=== PATIENT | female | born 1995 ===

== ENCOUNTER 2019-07-12 12:53 | Inpatient (IN) | payer OTHER, SELFPAY ==
[2019-06-30 08:11] VITALS: BMI 24.0
[2019-07-12] VITALS (12 sets, daily range): BP systolic 110–123; BP diastolic 56–84; PULSE 63–85; RESP 10–18; TEMP 36.2–36.9; O2SAT 95–100; BMI 23.8
--- NOTE | 2019-07-12 | PATH_ITS ---
[facility] Accession Number: [id number] . 01 Material submitted: . kidney - LEFT KIDNEY . 01 Clinical history: . LEFT LAPAROSCOPIC HAND ASSISTED NEPHRECTOMY . 02 Diagnosis: Left Kidney, Nephrectomy: Dilated collecting ducts consistent with history of chronic obstruction. Regions of atrophy and chronic inflammation consistent with chronic pyelonephritis. Please see comment. MRV 07/15/2019 1418 Local . 02 Comment: This case will be forwarded to the [facility] Renal Pathology department in consultation and the results reported as an amendment. . 02 Electronically signed: . Wen Hall MD, Pathologist NPI- [id number] . 01 Gross description: . Received in formalin, labeled left kidney, is an intact kidney (67 grams, 9.2 x 4.3 x 2.2 cm) with attached perinephric adipose tissue (up to 2.5 cm in depth). The ureter (length-3.0 cm, diameter-0.7 cm), renal vein (length-1.9 cm, diameter-0.8 cm), and renal artery (length-0.7 cm, diameter-0.3 cm) are identified and received clamped and stapled. No hilar lymph nodes are identified. The adrenal gland is absent. The parenchyma is light ayon to dark brown, smooth and homogenous. The nephrotic architecture appears to be normal. No nodules, masses or lesions are identified. Section code: (A1) ureteric and vascular resection margins; (A2-A5) associate sales representative tissue. ([id number]) /[facility] 07/14/2019 1533 Local . 02 Pathologist provided ICD-10: N11.1 . 02 CPT . 831974 Performed at: [address], [place], [place] [id number] MD Javier Roldan MD Phone: [phone] Performed at: [address] [id number] MD Wen Hall MD Phone: [phone]
[2019-07-12] MEDS: LACTATED RINGERS 1,000 ML 42 ML IV ×2 (13:51→18:09)
--- NOTE | 2019-07-12 15:59 | PM.PREOP ---
Pre-operative Note Interval Note History & Physical reviewed/Exam performed by Physician: Yes Changes to H&P: No H&P completed within 30 days and has changed as indicated here:: There are no changes to the history and physical examination scanned into file.
[2019-07-12] MEDS: CEFAZOLIN 2 GM/100 ML FROZ.PIGGY IV (17:00)
[2019-07-12] MEDS: ACETAMINOPHEN IV 1,000 MG/100 ML VIAL 400 MG IV (17:40)
--- NOTE | 2019-07-12 18:01 | SUR.OPER ---
Lateral on padded OR bed, head on pillow, gel axillary roll in place, bottom leg bent with gel pad under knee to foot, upper leg straight and supported with pillows. Upper arm supported by pillows and secured over bottom arm to padded arm board. Safety belt at hip, tape over blanket lower legs.
[2019-07-12] MEDS: BUPIVACAINE 0.25% W/ EPI 30 ML VIAL INJ (18:08)
[2019-07-12] MEDS: BUPIVACAINE LIPOSOME 266 MG/20 ML VIAL INJ (18:09)
--- NOTE | 2019-07-12 19:56 | PM.OP.1 ---
Operative Date/Time/Diagnoses Date of procedure: 07/12/19 Time of procedure: 19:56 Post-op diagnosis: same Procedure & Clinicians Procedure: 1. Left hand assisted laparoscopic nephrectomy. Same procedure as scheduled: Yes Indications: 1. Congenital atrophic left kidney. 2. Congenital left ureteropelvic junction obstruction. 3. Recurring UTI/left pyelonephritis. 4. Left nephrolithiasis. Surgeon: Malik Modi Wall To Wall Carpet Installer: Sindy Polo Click Yes if Unassisted: No Anesthesia Type: General Operative Notes Findings: There was a single left renal vein and artery supplying the left kidney. Left kidney was markedly atrophic with a very large collecting system. The adrenal gland was left in situ. Closure Type: primary Specimen(s): other (Atrophic left kidney.) Applied: catheter Estimated Blood Loss (mL): 10 Blood products transfused: none Tourniquet time (min): 0 Procedure in detail: The patient was positioned in supine was administered general anesthesia. She was then repositioned in modified left flank position. The abdomen and torso were then prepped and draped in sterile fashion. A solution of 0.5% Marcaine with epinephrine was then used to infiltrate the midline superior to the midline abdominal wall a midline incision was then made in the subcutaneous fat and Fausto's fascia was divided with the cautery pen and blunt dissection the the midline rectus fascia was then divided sharply the abdominal cavity was then entered and a hand port was placed appropriately. A 5 mm site was selected just below the left costal margin in the along the mammary line and a 10 mm port site was selected approximately midway between the umbilicus and the iliac crest again along the memory line. The sites were then infiltrated in periphery incisions were made ports were placed under direct visualization after creation of a pneumoperitoneum. Next using the LigaSure hand-held device the white line of Toldt was divided along the left colic gutter from the superior sigmoid approximately to the splenic flexure. The colon was then reflected medially and the aorta was palpated. A careful search for the hilum was then conducted using careful blunt and cautery dissection using the LigaSure Impact device. The vessels of of the left kidney were then identified a window was created bluntly in the 45 cm vascular stapler was then utilized to divide the hilum. Additional small vessels and other connections were then encountered dissecting medially and superiorly above the kidney. The adrenal gland on the left was identified and left in situ next the ureter was located and identified at approximately at the mid point a window was then created in the soft tissues and large hemoclips were applied proximally and distally before sharp division. Remaining loose areolar attachments of the kidney were then freed up with blunt dissection in the kidney was removed in its entirety. It was handed off the field and labeled as to its item procurement for routine gross and microscopic examination. Examination of the renal bed and hilum were then undertaken careful inspection of posterior to the spleen was performed as well. Hemostasis was excellent. The left colon was then repositioned anatomically and the short omentum was then draped anteriorly over the small bowel. The 12 mm port was closed with an interrupted 0 Vicryl full-thickness and then the skin was reapproximated with a running subcuticular 4 0 Monocryl a 5 mm port was closed at the skin level with a running subcuticular of 540 Monocryl. The midline abdominal wall fascia was then closed using running 0 PDS starting at at the inferior and superior apex and using running technique they were tied to 1 another at the midpoint. The subcutaneous layer was closed with the running 3 0 Vicryl skin was reapproximated with a running subcuticular of 4 micro. In's incision sites were then dressed with appropriately tailored Telfa pad and then op site dressings were applied over to create a bio occlusive closure. The patient was then repositioned in supine, was then awakened and transferred to [facility] in stable condition. Complications: none Post-operative Condition: stable Disposition: PACU Plan for aftercare: Acute Care.
[2019-07-12] MEDS: ONDANSETRON 4 MG/2 ML INJ IV (20:12)
[2019-07-12] MEDS: HYDROMORPHONE 2 MG INJ IV ×3 (20:12→20:41)
[2019-07-12] MEDS: OXYCODONE IR 5 MG TABLET PO ×2 (20:47→21:31)
[2019-07-12] MEDS: LACTATED RINGERS 1,000 ML 100 ML IV (21:32)
[2019-07-12] MEDS: HYDROMORPHONE 0.5 MG INJ IV (22:30)
--- NOTE | 2019-07-12 23:48 | PM.AN.REGBLK ---
Regional Block Pre-procedure Procedure: Continuous Epidural for Post-operative Pain Management PMH/ROS narrative: 23 y/o with non-functional kidney, post hand-assisted LEFT laparoscopic nephrectomy with c/o post-op pain, inadequate pain control with narcotics, request epidural for POPM. POD#0. Hx: No personal or family history of anesthesia problems. ASA Class: I Medications: Current Medications Generic Name Dose Route Start Last Admin Trade Name Freq PRN Reason Stop Dose Admin Gabapentin 300 mg 07/12/19 22:30 Neurontin PO BID DALLIN Hydromorphone HCl 0.5 mg 07/12/19 22:19 Dilaudid IV Q1H PRN Pain, Severe (7-10) Hydroxyzine HCl 25 mg 07/12/19 20:07 Vistaril IM Q4HR PRN spasm or agitation Lactated Ringer's 1,000 mls @ 100 mls/hr 07/12/19 20:15 07/12/19 21:32 Lactated Ringers IV 100 mls/hr CONT DALLIN Administration Bupivacaine HCl 25 ml/ Sodium 100 mls @ 6 mls/hr 07/12/19 23:00 Chloride EPIDURAL CONT DALLIN Oxycodone HCl 5 mg 07/12/19 20:07 07/12/19 21:31 Percolone PO 5 mg Q4HR PRN Administration Pain, Moderate (4-6) Allergies: Allergies Allergy/AdvReac Type Severity Reaction Status Date / Time nickel Allergy Mild Red bumps Verified 07/12/19 13:34 over time related to jewelery --: R/B discussed. Hand-assist Incision noted between xyphoid process and umbilicus (approx T7-T9 dermatome). Also port incision L lower abdomen, approx T11. Procedure Insertion date: 07/12/19 Insertion time: 23:15 Prep/Local: betadine x3 Interspace: T7-8 Patient position: sitting Needle: 18 gauge Romel Loss of resistance with: saline DA at (cm): 5 Catheter placed at SKIN (cm): 10 Catheter in SPACE (cm): 5 Sensory level: T5-9, covering large incision, but not lower abdomen port incision. Initial Medications TEST DOSE time: 23:20 TEST DOSE: 1.5% lidocaine with epinephrine 1:200k (mL): 3 BOLUS DOSE time: 23:25 BOLUS DOSE (mL): 4 BOLUS DOSE med: 0.25% bupivacaine Infusion INFUSION: 0.125% bupivacaine and with fentanyl 2 mcg/mL Initial rate (mL/hr): 6 Subsequent interventions: 6mL/h with PCEA 3mL q15m Post-procedure Anesthesia time START: 23:10 Anesthesia time END: 23:25 Post-procedure Anesthesia Assessment: Yes CV function: HR/BP stable, Yes Resp function: RR/sat/airway adequate, Yes Pain control adequate, Yes Nausea & vomiting absent and Yes Mental status appropriate
[2019-07-13] VITALS (10 sets, daily range): BP systolic 99–125; BP diastolic 51–62; PULSE 60–69; RESP 14–18; TEMP 36.8–37.4; O2SAT 95–99
--- NOTE | 2019-07-13 00:04 | PC.NURSE ---
Event Note Patient continued complaint of uncontrollable pain after second dose of oxycodone 5mg. MD called and orders received for 0.5mg PIV Dilaudid Q1H for severe pain and scheduled Gabapentin. Provider also expressed that if pain remained uncontrollable that option for epidural was still available. Patient updated and PIV Dilaudid given, patient reassessed a few minutes later and patient with continued complaint of 10/10. Stating she felt no relief from 0.5mg PIV Dilaudid and just felt high. MD called a second time and verbal orders received to call resolution expert anesthesiologist to initiate placement of epidural. Patient transferred to ICU to facilitate this.
[2019-07-13] MEDS: BUPIVACAINE 0.5% (PF) 25 ML in SODIUM CHLORIDE 0.9% 75 ML 6 ML EPIDURAL (01:48)
--- NOTE | 2019-07-13 01:54 | PC.NURSE ---
Addendum entered by Qi Davis R.N. 07/13/19 06:30: Patient still c/o pain to lower abdomen requiring PO oxycodone and IV Dilaudid for breakthrough. Also encourage her to use MILK RECEIVER. Original Note: Shift [id number] transferred to room 231 for epidural placement from anesthesia. Dr Garcia placed epidural of bupivicaine/Fentanyl with almost immediate effectiveness, rate 6ml/hr with MILK RECEIVER dose of 3ml/15min/20mg MAX. Patient tolerated procedure well, VSS, RA SpO2 >94%.
[2019-07-13] MEDS: OXYCODONE IR 5 MG TABLET PO ×2 (02:12→12:23)
[2019-07-13] MEDS: HYDROMORPHONE 0.5 MG INJ IV ×5 (04:00→22:20)
[2019-07-13] MEDS: LACTATED RINGERS 1,000 ML 100 ML IV ×2 (06:28→15:50)
--- NOTE | 2019-07-13 07:33 | PM.PN.1 ---
Subjective Subjective Date Patient Seen: 07/13/19 Time Patient Seen: 07:33 Interval history: During the interval she had difficulty pain control immediately postoperative. She consented to postoperative placement of epidural catheter. Since then the dose has been titrated and she has had excellent pain control. She denies nausea or vomiting or passage of flatus. Exam Vital Signs (past 8 hours): - 07/12/19 23:57 07/13/19 00:00 07/13/19 01:08 Temperature 97.8 F Pulse Rate 63 64 Respiratory Rate 16 Blood Pressure 114/56 L 115/58 L Pulse Oximetry 95 95 07/13/19 02:00 07/13/19 03:00 07/13/19 04:00 Temperature 98.2 F Pulse Rate 64 63 61 Respiratory Rate 16 Blood Pressure 116/55 L 120/60 125/62 Pulse Oximetry 98 Oxygen Delivery Method Room Air Oxygen Flow Rate 0 Narrative Exam Narrative: She is laying comfortably in bed in no distress. Chest equal and unlabored expansion bilaterally. Heart rate regular. Abdomen is soft nondistended there is no visible ecchymosis dressings are intact. Extremities are without tenderness pallor cyanosis. Sequential compression devices in place. Objective Labs Labs: Laboratory Results - last 24 hr 07/12/19 23:00 Nasal Screen MRSA (PCR) Negative for mrsa Assessment & Plan Assessment & Plan narrative: Impression: 1. Stable postoperative day 1. Status post left hand assisted laparoscopic nephrectomy. 2. Postoperative pain control. Markedly improved following placement epidural catheter. Plan: 1. Increase diet and ambulate today.
[2019-07-13] MEDS: GABAPENTIN 300 MG CAPSULE PO ×2 (07:55→20:38)
[2019-07-13] MEDS: FENT 2MCG/ML BUPIV 0.125% EPI 200 MCG/100 ML PLAST..BAG 6 MCG EPIDURAL ×2 (08:15→16:43)
--- NOTE | 2019-07-13 08:19 | PC.NURSE ---
Addendum entered by Sorin Key R.N. 07/13/19 15:04: Pt rated pain 5/10 after AM interventions which is tolerable for her. She was able to rest until lunch time. She c/o abrupt onset of pain at 1220. Administered dilaudid for break through and oxycodone for longer coverage as well as encouragement of pcea dosing. After 1223 pain meds, pt rated pain 2/10 and was agreeable to walk. She ambulated in hallway with SBA, fww, gait belt, overhauler bus truck socks. Tolerated well. Pt reported generalized itching she associates with dilaudid. Dr. Garcia on rounds. Reported itching and response to pain meds. Awaiting orders. Original Note: Pt c/o pain 8/10 on 0-10 pain scale to bilateral lower quadrants. States oxycodone does not help and is requesting dilaudid. Encouraged use of PCEA which is noted to be empty when pt presses button. Bupivacaine/fentanyl is noted to be hanging and ordered is bupivicaine. Called to Dr. Garcia to clarify order. Dr. Garcia gave verbal order to continue with bupivacaine/fentanyl at currently ordered rates and PCEA dosing. Called to pharmacy and requested medication and assistance with placing order in [facility] as the medication is not found. Verified medication at bedside with another RN and hung so as not to delay care and treatment of pt's active pain. Administered PRN dilaudid for break through per pt request. Will monitor.
--- NOTE | 2019-07-13 15:12 | P.PN_ITS ---
Subjective Subjective Date Patient Seen: 07/13/19 Time Patient Seen: 15:00 Interval history: POD#1 hand-assisted lap nephrectomy, midline incision superior to umbilicus, L lower abdomen port incision, with indwelling thoracic catheter at T7-8. Pain adequately controlled, able to ambulate today, tolerating PO. Has required prn oxy and IV dilaudid for breakthrough pain for L lower abdomen. Midline incision without pain. TEP running 6mL/h continuous 0.125% bupiv with fentanyl 2mcg/mL, PCEA 3mL q15m. Pt reports improved pain control with PCEA button use. Exam Vital Signs (past 8 hours): - 07/13/19 07:30 07/13/19 09:28 07/13/19 11:20 Temperature 98.4 F 98.3 F Pulse Rate 60 65 Respiratory Rate 16 14 Blood Pressure 113/60 99/51 L Pulse Oximetry 96 96 96 Oxygen Delivery Method Room Air Oxygen Flow Rate 0 Narrative Exam Narrative: Pt sitting up in chair, alert, comfortable appearing, conversant, smiling and laughing with sister in room. TEP site c/d/i, no pain, erythema. Objective Labs Labs: Laboratory Results - last 24 hr 07/12/19 23:00 Nasal Screen MRSA (PCR) Negative for mrsa Assessment & Plan Assessment & Plan narrative: POD#1 nephrectomy with TEP for pain management, with oxycodone and occasional IV dilaudid for breakthrough. Overall, pain monika quately controlled, but still needing narcotics for incisions outside range of TEP coverage. As the large, upper abdomen midline incision is covered, the TEP is helping significantly with pain. I will add scheduled acetaminophen 650mg q6h and oxycodone 10mg po for breakthrough pain. The epidural is a little high, covering roughly T4-9, but, again, covering the main incision. Will also add diphenhydramine for pruritis prn.
--- NOTE | 2019-07-13 15:20 | CM.DANOTE ---
DCP assessment: EMR Reviewed: Patient is a 23 yr old female who was admitted to the hospital for Lt Nephrectomy preformed by Dr. Modi. CM/RN met with patient at the bedside and explained role. Patient was alert and oriented x3 during CM/RN visit. patient PCP is Dr. Simon. patient is Independent at baseline with all ADLs and drives. Patients sister Maia is here to help patient with recovery for the next two weeks and then after that patients Javier will be with her to assist. patient currently lives in a two story home that has about 20 stairs. Patient at baseline has not difficulty with stairs but will have her family support and help to manage them when she gets home. I: [facility] [place] [facility] Plan: D/C home with family when medically stable. No identified D/C planning needs noted at this time. CM Department will continue to follow to assist if any new D/C planning needs arise. Amy Lewis RN Discharge Planning/Care Management CM Discharge Assessment Start: 07/13/19 15:19 Freq: Status: Active Protocol: Document 07/13/19 15:19 (Rec: 07/13/19 15:20 [id number]) Discharge Planning Assessment Assigned Bank Secrecy Act Officer Amy Lewis RN DPOA/Assigned Designee Name Javier Cullen () Contact Information [phone] Advance Directives? No History Provided By Patient,Medical Record Has Patient been admitted in last 30 No days? Prior Living Arrangements House Household Members spouse,family,children Type of transporation used prior to Drives own vehicle admit Independent with ADL's Yes Is patient alert and oriented? Yes Barriers to Discharge No Discharge Plan Home Referrals Initiated None needed Whiteboard Updated in Patient Room with Yes name and ext. 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 No Height 162.56 cm Weight 63.503 kg Body Mass Index (BMI) 24.0 Hearing Ability Normal Visual Assist Glasses Dentition Type Teeth, Natural Present Barriers to Learning None Other Aids No Hx Anesthesia Reactions No Hx Family Anesthesia Reaction No Hx Malignant Hyperthermia No Hx Blood Transfusions No Anesthesia Review Requested No alcohol intake current Alcohol Intake Frequency Other: Occasional Smoking Status Former smoker Tobacco type cigarettes how long ago did patient quit smoking Quit 2008 Substance Use Type does not use Pain Present Pain Reported Comment Left flank/kidney area Musculoskeletal Symptoms Limited Range of Motion History of Falling (Recent or History of No ) Comment right shoulder injury r/t dance injury, numbness, permanent bruising Patient is completely paralyzed or No completely immobile Mental Status Oriented to own ability Is patient on oxygen? No Does patient have VALDIVIA/SOB No Hx Sleep Apnea No Currently Taking a Beta Praveen No Can You Climb a Flight of Stairs Without Yes SOB Hx Chest Pain No Hx SOB No Hx Syncope or Dizziness No Anti-Coagulant Therapy No Has a Nib Finisher No Cardiac Testing No Hx Pacemaker/ICD No Pacemaker Rep Required? No Cardiac Clearance Received Not Applicable Diet Type At Home Ketogenic dysphagia No Genitourinary Symptoms Flank Pain Urinary Catheter Present No Hx Urinary Self Catheterization No Diabetes No Patient No Lactating No Hx Drug Resistant Organism No Presence of External or Internal Medical No Devices Liu exposure No Have you had any close contact with No someone diagnosed with NOVEL CORONAVIRUS ? Have you traveled outside the [facility] States in the last 30 days? Marital Status Lives With spouse,children Prior Living Arrangements House Number of Floors (Floors) Two Floors Support System Family,Sibling(s),Spouse Does the Patient Have Assistance After Yes Surgery Patient Discharge Plan Description Return Home Comment Pt advised 3-5 day length of stay per surgeon Feels Safe in Current Environment Yes Been Physically Hurt or Threatened By a No Person in Current Environment Do you have thoughts of harming yourself None or others? Are you currently considering suicide? No Do you have a plan to hurt yourself or No Plan others? Do You Have Any Spiritual Beliefs That No May Affect Your HC Choices? Do You Have Any Cultural Practices That No May Affect Your HC Choices? Comment Alejandro Who Can We Speak to About Patient's Care Family, friends Identifying Code for Release of Patient Declines to issue Information Health Care Proxy/Next of Kin Javier () Health Care Proxy Emergency Contact Name Javier () Emergency Contact Advance Directives? No Power of Wood Pattern Maker No PAC Instructions Medications to take/avoid,No ETOH/petroleum product on skin DOS,NPO,Post-op transportation,Sturdy shoes/ comfortable clothes,Do not bring valuables and remove jewelry Comment Bowel prep per surgeon
[2019-07-13] MEDS: diphenhydrAMINE 50 MG/ML VIAL 25 MG IV (15:46)
--- NOTE | 2019-07-13 15:55 | PC.NURSE ---
Addendum entered by Billie Kirk R.N. 07/13/19 21:05: 2045 - Pt up and ambulating for the second time this shift. Reports increased pain with ambulation. Using demand epidural. Pt using IS 1500. Expressing concerns with incision site. Edematous with shadow drainage marked. No erythema noted. Monitor. Addendum entered by Billie Kirk R.N. 07/13/19 18:21: 1815 - Pt reports significant improvement in pain. 2 of 10. Denies nausea. Reports mild itching, but that's okay. Denies further need at this time. Monitor. Addendum entered by Billie Kirk R.N. 07/13/19 17:16: 1710 - Pt reports pain now 7 of 10, following dilaudid infusion and pushing demand button on epidural. Oxycodone given. Reinforced safety and call light use. Call light in reach. Monitor. Addendum entered by Billie Kirk R.N. 07/13/19 16:49: 1615 - Epidural alarm, air in line. No visible air noted. Tubing primed. However continues to alarm. Primed again. Pharmacy called for additional bag for epidural. Infusion re-initiated. Pt reports increased pain, following Narcan 0.1mg for itching and infusion paused for alarm. Dilaudid and ice pack provided. Pt reports pain at incision site. States it feels like it is going to explode. Monitor. Original Note: 1530 -Pt c/o itching all over. Reports have scratch skin on back of her left leg. I broke the skin. Wash cloth offered for itching. Anesthesiologist aware. Orders obtained. Reports pain as currently controlled at 5 of 10. Epidural infusing at 6mls/hr. Denies nausea. Reinforced safety. Call light in reach.
[2019-07-13] MEDS: NALOXONE 0.4 MG/ML VIAL 0.1 MG IV (16:09)
[2019-07-13] MEDS: ACETAMINOPHEN 325 MG TABLET 650 MG PO (17:06)
[2019-07-13] MEDS: OXYCODONE IR 10 MG TABLET PO (17:07)
[2019-07-14] VITALS (11 sets, daily range): BP systolic 96–115; BP diastolic 51–70; PULSE 55–69; RESP 14–18; TEMP 36.4–37.1; O2SAT 92–100
[2019-07-14] MEDS: FENT 2MCG/ML BUPIV 0.125% EPI 200 MCG/100 ML PLAST..BAG 6 MCG EPIDURAL (00:51)
[2019-07-14] MEDS: LACTATED RINGERS 1,000 ML 100 ML IV (00:52)
[2019-07-14] MEDS: ACETAMINOPHEN 325 MG TABLET 650 MG PO ×4 (00:52→17:33)
[2019-07-14] MEDS: OXYCODONE IR 10 MG TABLET PO ×4 (01:27→20:15)
--- NOTE | 2019-07-14 08:24 | PM.PN.1 ---
Subjective Subjective Date Patient Seen: 07/14/19 Time Patient Seen: 08:25 Interval history: She reports excellent pain control. She is tolerating liberal fluids. She is tolerating small general diet. She is passing flatus. She is ambulating independently. Exam Vital Signs (past 8 hours): - 07/14/19 00:54 07/14/19 01:00 07/14/19 04:30 Temperature 97.7 F Pulse Rate 64 Respiratory Rate 16 Blood Pressure 97/51 L Pulse Oximetry 93 97 100 07/14/19 04:31 07/14/19 07:30 Temperature 97.5 F L Pulse Rate 60 Respiratory Rate 16 Blood Pressure 96/53 L Pulse Oximetry 100 100 Oxygen Delivery Method Nasal Cannula Oxygen Flow Rate 2 Narrative Exam Narrative: She is resting comfortably in bed and in no distress. Chest equal clear and unlabored bilaterally. Heart rate is regular. Abdomen is soft and nondistended. No ecchymosis. Dressings are intact. Extremities are unremarkable and said sequential compression devices are in place Assessment & Plan Assessment & Plan narrative: Assessment: 1. Improved. Postoperative day 2. Status post left hand assisted laparoscopic nephrectomy. Plan: 1. Discontinue Elizalde catheter and saline lock IV. 2. Add tramadol 50 mg Q 6 hours to current schedule Tylenol. 3. Discussed epidural planned with Dr. Garcia and with patient. Will attempt a wean schedule today with plan for discontinuation of epidural in 24-36 hours period 4. Pathology pending.
[2019-07-14] MEDS: GABAPENTIN 300 MG CAPSULE PO ×2 (08:42→20:15)
[2019-07-14] MEDS: TRAMADOL 50 MG TABLET PO ×2 (08:42→17:32)
--- NOTE | 2019-07-14 10:01 | PM.PN.1 ---
Subjective Subjective Date Patient Seen: 07/14/19 Time Patient Seen: 08:15 Interval history: POD#2 hand-assist laparoscopic L nephrectomy. Pain adequately controlled with TEP PCEA and prn oxy, scheduled tylenol, gabapentin, and now tramadol. Block above T-10, covering midline supra-umbilical incision. Tolerating PO, ambulating, passing gas. Exam Vital Signs (past 8 hours): - 07/14/19 04:30 07/14/19 04:31 07/14/19 07:30 Temperature 97.5 F L Pulse Rate 60 Respiratory Rate 16 Blood Pressure 96/53 L Pulse Oximetry 100 100 100 07/14/19 08:00 Temperature 98 F Pulse Rate 61 Respiratory Rate 15 Blood Pressure 115/68 Pulse Oximetry 92 Oxygen Delivery Method Room Air Oxygen Flow Rate 0 Narrative Exam Narrative: Block T5-9, covering incision. TEP insertion with small amount of blood, non-tender, no erythema. Dressing intact. Assessment & Plan Assessment & Plan narrative: Will decrease infusion rate from 6 to 3mL/h, continue PCEA 3mL q15m. Plan to cap epidural in am tomorrow with hope of adequate pain control for removal. Case discussed with Dr Modi.
--- NOTE | 2019-07-14 10:56 | PC.NURSE ---
Rec'd pt in bed sleeping with eyes closed FLACC 0. Upon awakening, pt initially rated pain as tolerable but became increasingly uncomfortably with movement. Discussed with Dr. Garcia and iRan on rounds. New order for tramadol in addition to scheduled tylenol and PRN oxycodone and dilaudid. Dr. Garcia administered a 5 ML bolus dose of epidural and pt was given tramadol, tylenol, and gabapentin. On reassessment, pt reported pain as tolerable at 4/10 and requested OOB/hygiene care. Pt was CGA to edge of bed. Her sister assisted her with hygiene care. After, pt walked to sink and brushed teeth and then made 2 laps around the ICU hallway. She then requested to go back to bed. Instructed in splinting abd as well as deep breathing. Provided ice pack. Call light in easy reach.
[2019-07-14] MEDS: FENT 2MCG/ML BUPIV 0.125% EPI 200 MCG/100 ML PLAST..BAG 3 MCG EPIDURAL (16:15)
[2019-07-15] VITALS (11 sets, daily range): BP systolic 114–131; BP diastolic 66–80; PULSE 63–71; RESP 16–18; TEMP 36.2–37.1; O2SAT 94–100
[2019-07-15] MEDS: OXYCODONE IR 10 MG TABLET PO ×7 (00:16→23:48)
[2019-07-15] MEDS: ACETAMINOPHEN 325 MG TABLET 650 MG PO ×5 (00:16→20:47)
--- NOTE | 2019-07-15 07:32 | PM.PN.1 ---
Subjective Subjective Date Patient Seen: 07/15/19 Time Patient Seen: 07:32 Interval history: She is tolerating a general diet and passing a flight us. She is ambulating and using the restroom unassisted. Oral pain control was not adequate to discontinue epidural. On review of her meds, it is apparent that tramadol was ordered only as needed. Exam Vital Signs (past 8 hours): - 07/15/19 00:00 07/15/19 00:16 07/15/19 04:00 Temperature 98.3 F 97.1 F L Pulse Rate 70 68 Respiratory Rate 16 16 Blood Pressure 118/78 114/71 Pulse Oximetry 99 99 94 Oxygen Delivery Method Room Air Oxygen Flow Rate 0 Narrative Exam Narrative: She is laying in bed in no acute distress. Chest equal and unlabored bilaterally. Heart rate is regular. Abdomen is soft and scaphoid incisional dressings are intact and unchanged. Assessment & Plan Assessment & Plan narrative: Assessment: 1. Continued improvement postoperative day 3 status post left hand assisted laparoscopic nephrectomy. 2. We will modify oral pain medication regimen. Plan: 1. Increase tramadol to 100 mg q.i.d. on schedule with Tylenol. 2. Attempted epidural wean and discontinuation today. 3. Pathology pending.
[2019-07-15] MEDS: GABAPENTIN 300 MG CAPSULE PO ×2 (08:25→20:46)
[2019-07-15] MEDS: TRAMADOL 50 MG TABLET 100 MG PO ×4 (08:25→20:46)
[2019-07-15] MEDS: SODIUM CHLORIDE 0.9% FLUSH 10 ML IV ×3 (08:25→20:49)
--- NOTE | 2019-07-15 08:54 | PM.PN.1 ---
Subjective Subjective Date Patient Seen: 07/15/19 Time Patient Seen: 08:54 Interval history: POD#3 hand-assist laparoscopic LEFT nephrectomy. Pain adequately controlled yesterday with reduced TEP rate of 3mL/h and prn oxy, scheduled tylenol, tramadol, gabapentin. Ambulating, tolerating PO, afebrile, VSS. Exam Vital Signs (past 8 hours): - 07/15/19 04:00 07/15/19 07:25 07/15/19 07:45 Temperature 97.1 F L 98.0 F Pulse Rate 68 63 Respiratory Rate 16 18 Blood Pressure 114/71 116/66 Pulse Oximetry 94 98 98 Oxygen Delivery Method Room Air Oxygen Flow Rate 0 Narrative Exam Narrative: Pt alert, sitting up in bed, relaxed, smiling and conversant. Assessment & Plan Assessment & Plan narrative: Stopped epidural. Will pull when pain adequately controlled on PO meds only. d/c per Dr Modi.
[2019-07-15] MEDS: ONDANSETRON 4 MG/2 ML INJ IV (10:00)
--- NOTE | 2019-07-15 10:08 | PC.NURSE ---
Addendum entered by Silvia De La Garza R.N. 07/15/19 14:53: Dr Modi called and informed of patients continued pain, orders received. Addendum entered by Silvia De La Garza R.N. 07/15/19 13:08: Reassessed patients pain rates 10, given scheduled tramadol as ordered. Addendum entered by Silvia De La Garza R.N. 07/15/19 12:14: Patient up to bathroom with SBA, c/o incisional pain 02/04, discussed pain medicine options, given scheduled tylenol and 05mg IVP Dilaudid. Also assisted back to bed warm blanket given. Original Note: Patient up ambulating in vazquez, gait steady. Upon return patient reports abdominal pain increased, given 10mg oxycodone for breakthrough. Also given 4mg IVP Zofran for c/o nausea, no emesis.
[2019-07-15] MEDS: HYDROMORPHONE 0.5 MG INJ IV (11:45)
[2019-07-15] MEDS: FENT 2MCG/ML BUPIV 0.125% EPI 200 MCG/100 ML PLAST..BAG 3 MCG EPIDURAL (11:57)
[2019-07-15] MEDS: ALPRAZolam 0.5 MG TABLET PO (20:46)
[2019-07-16] MEDS: OXYCODONE IR 10 MG TABLET PO ×3 (03:30→10:30)
[2019-07-16 04:01] VITALS: BP 113/58; PULSE 66; RESP 16; TEMP 36.3; O2SAT 96
--- NOTE | 2019-07-16 07:38 | PM.DS.1 ---
History of Present Illness History of Present Illness Chief complaint: Left Laparoscopic Hand Asisted Nephrectomy Discharge Providers Provider Date of admission: 07/12/19 12:53 Discharge Date: 07/16/19 Primary care physician: Deric Juarez MD Consults: 07/12/19 19:50 Consult to Discharge Planning Routine Comment: Discharge provider: Malik Modi MD Summary Hospital Course Discharge Diagnosis: 1. 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 2. Left nephrolithiasis. 3. History of recurring UTI and left pyelonephritis. Hospital Course: The patient was admitted on the morning of 07/12/2019 and underwent uncomplicated left hand assisted laparoscopic nephrectomy under general anesthesia. She refused preoperative epidural catheter placement. Her postoperative course was remarkable for immediate difficulty with control of postoperative pain. Dr. Paresh Garcia placed an epidural catheter just hours postoperatively. Thereafter she had excellent analgesia. She began tolerating a general diet the morning of the 1st postoperative day. He is able to ambulate in the afternoon of the 1st postoperative day and dependently. She was able to void without incident following removal of Elizalde catheter she had return of bowel function as evidence by ample passage of flatus and small stool. Final pathology is pending at discharge. She is provided routine postoperative lifting driving and hygiene instructions and restrictions. She is provided prescriptions for oxycodone, tramadol, and Xanax. A postoperative visit will be scheduled in my office in approximately 4 weeks. Status at Discharge Cognitive/behavioral status at discharge: oriented Functional status at discharge: independent ambulation Overall status at discharge: patient is back to baseline Time Spent with Patient Time spent: Less than 30 minutes Exam Vital Signs (past 8 hours): - 07/16/19 04:01 Temperature 97.4 F L Pulse Rate 66 Respiratory Rate 16 Blood Pressure 113/58 L Pulse Oximetry 96 Oxygen Delivery Method Room Air Oxygen Flow Rate 0 Discharge Plan Discharge Plan Patient Disposition: Home Discharge orders & Medications Prescriptions: New tramadol 50 mg Tablet 100 mg PO QID Qty: 30 RF: 0 oxycodone 10 mg Tablet 10 mg PO Q3HR PRN (Reason: Pain, Severe (7-10)) Qty: 15 RF: 0 bisacodyl 10 mg Suppository 10 mg [place] DAILY PRN (Reason: Constipation) Qty: 30 RF: 0 Continued Vitamin 27 mg iron- 0.8 mg Tablet 1 tab PO DAILY Qty: 0 RF: 0 acetaminophen [Tylenol Extra Strength] 500 mg Tablet 1,000 mg PO Q6H PRN (Reason: Pain) 5 Days Qty: 0 RF: 0 alprazolam 0.25 mg Tablet 0.25 mg PO Q8-12H PRN (Reason: Anxiety) Qty: 10 RF: 0 Follow up/Referrals: Deric Juarez MD [Primary Care Provider] - Malik Modi MD [Physician] - Diet/Activity/Treatments Activity: No lifting greater than 15 lb x 4 weeks. Skin/Wound/Dressing Care Skin care: Remove abdominal dressings and leave open to air. Patient may shower. Report to your healthcare provider any signs of infection, such as:: chills, fever, increased pain, unusual drainage and unusual redness Dressing: Remove abdominal dressings and leave open to air. Patient may shower. Visit Report/Discharge Packet Instructions: DI for Laparoscopy, DI for Nephrectomy, DI for Prescription Opioid Use Stand Alone Forms: Surgery Discharge Discharge Data Primary Care Provider: Deric Juarez
[2019-07-16] MEDS: ACETAMINOPHEN 325 MG TABLET 650 MG PO (08:23)
[2019-07-16] MEDS: TRAMADOL 50 MG TABLET 100 MG PO (08:24)
[2019-07-16] MEDS: GABAPENTIN 300 MG CAPSULE PO (08:25)
[2019-07-16 09:00] VITALS: O2SAT 97
[2019-07-16] MEDS: ALPRAZolam 0.5 MG TABLET PO (09:47)
[2019-07-16 10:21] VITALS: BP 120/71; PULSE 68; RESP 16; TEMP 36.5; O2SAT 99
--- NOTE | 2019-07-16 10:55 | PC.NURSE ---
DISCHARGE TO HOME FOLLOWING LENGTHY REVIEW OF PAIN RX PLAN AND HOME CARE INSTRUCTIONS- ALL QUESTIONS ANSWERED TO PTS SATISFACTION - AFTER SHOWERING AND GETTING DRESSED PT WAS DISCHARGED TO HOME AT THIS TIME
== END 2019-07-16 10:57 | disposition home or self-care (01) | DRG 660 ==
LOC: AC 13:41 → ICU 07-13 11:02 → AC 07-30 16:15 → ICU 07-30 16:15
PROVIDERS: Admitting Provider Specialist; Family Provider Family Medicine; PCP Family Medicine; Referring Provider Family Medicine; Visit Provider Specialist
PROC: 0TT10ZZ Resection of Left Kidney, Open Approach (ICD-10-PCS; principal; 2019-07-12 13:45)
DX: Q60.3 Renal hypoplasia, unilateral (principal); Q62.39 Other obstructive defects of renal pelvis and ureter; N20.0 Calculus of kidney; Z87.440 Personal history of urinary (tract) infections; G89.18 Other acute postprocedural pain
CPT/HCPCS: 87797; C9290; J0131; J0690; J1100; J1170; J1200; J2250; J2310; J2405; J2704; J3010